=== PATIENT | male | born 1955 | race Caucasian/White ===

== ENCOUNTER 2022-06-09 10:54 | Day surgery (SDC) | payer MEDICARE, MEDICAID ==
[2022-06-09] VITALS (13 sets, daily range): BP systolic 135–175; BP diastolic 65–117
[~2022-06-09] VITALS: Ht 182.9 cm; Wt 96.0 kg
[~2022-06-09 10:54] MED LIST: LISI1TAB53 PO; OMEP40CA21 PO
[2022-06-09] MEDS ORDERED: normal saline 1000ml 1,000 ML IV SCH ×2 (11:15→13:35)
[2022-06-09] MEDS ORDERED: TIOT4MIS2 INH (11:28)
[2022-06-09] MEDS ORDERED: LOSA50TA64 PO (11:28)
[2022-06-09] MEDS ORDERED: ATOR-2 PO (11:28)
[2022-06-09] MEDS ORDERED: DILT360C32 PO (11:28)
[2022-06-09] MEDS ORDERED: MONT-40 PO (11:28)
[2022-06-09] MEDS ORDERED: ALBU18HF2 (11:28)
[2022-06-09] MEDS ORDERED: CYCL5TAB PO (11:28)
[2022-06-09] MEDS ORDERED: ALBU17AE26 (11:28)
[2022-06-09] MEDS ORDERED: HYDR100T27 PO (11:28)
[2022-06-09] MEDS ORDERED: PREG150C46 PO (11:28)
[2022-06-09 11:33] LABS: BASOPHILS # (AUTO) 0.1 X10'3 (0-0.2); BASOPHILS % (AUTO) 0.8 % (0-1); EOSINOPHILS # (AUTO) 0.1 X10'3 (0-0.9); EOSINOPHILS % (AUTO) 0.7 % (0-6); HEMATOCRIT 41.7 % (42.0-52.0); HEMOGLOBIN 14.3 g/dl (14.0-17.9); LYMPHOCYTES # (AUTO) 1.6 X10'3 (1.1-4.8); LYMPHOCYTES % (AUTO) 14.2 % (21-51); MEAN CORPUSCULAR HEMOGLOBIN 31.2 PG (27.0-31.0); MEAN CORPUSCULAR HGB CONC 34.4 g/dL (33.0-36.5); MEAN CORPUSCULAR VOLUME 90.8 FL (78-98); MEAN PLATELET VOLUME 8.2 FL (7.4-10.4); MONOCYTES # (AUTO) 0.8 X10'3 (0-0.9); MONOCYTES % (AUTO) 7.4 % (2-12); NEUTROPHILS # (AUTO) 8.4 X10'3 (1.8-7.7); NEUTROPHILS % (AUTO) 76.9 % (42-75); PLATELET COUNT 280 X10'3 (140-440); RED BLOOD COUNT 4.59 X10'6 (4.70-6.10); RED CELL DISTRIBUTION WIDTH 14.1 % (11.5-14.5); WHITE BLOOD COUNT 10.9 X10'3 (4.5-11.0)
[2022-06-09 11:44] LABS: ALBUMIN 2.8 G/DL (3.4-5.0); ANION GAP 6 (8-16); BLOOD UREA NITROGEN 18 MG/DL (7-18); BUN/CREATININE RATIO 22.2 (10.0-20.0); CALCIUM 8.4 MG/DL (8.5-10.1); CHLORIDE 106 MMOL/L (99-107); CREATININE 0.81 MG/DL (0.60-1.10); GLUCOSE 102 MG/DL (70-104); POTASSIUM 3.9 MMOL/L (3.5-5.1); SODIUM 138 MMOL/L (135-145); TOTAL CARBON DIOXIDE 26.5 MMOL/L (24-32); eGFR > 90 ML/MIN
[2022-06-09] MEDS ORDERED: hydrALAZINE 20mg/ml inj. IV ONE (13:13)
[2022-06-10] MEDS ORDERED: LOSA25TA96 PO (09:30)
== END 2022-06-09 15:20 | disposition home or self-care (01) ==
LOC: SSTAY O 10:54
PROVIDERS: ATTEND Radiology Vascular & Interventional Radiology
DX: N04.5 Nephrotic syndrome with diffuse mesangiocapillary glomerulonephritis (principal); N26.9 Renal sclerosis, unspecified; N26.1 Atrophy of kidney (terminal); I13.0 Hypertensive heart and chronic kidney disease with heart failure and stage 1 through stage 4 chronic kidney disease, or unspecified chronic kidney disease; N18.2 Chronic kidney disease, stage 2 (mild); I50.30 Unspecified diastolic (congestive) heart failure; B18.2 Chronic viral hepatitis C; J43.9 Emphysema, unspecified; E55.9 Vitamin D deficiency, unspecified; D64.9 Anemia, unspecified; E78.00 Pure hypercholesterolemia, unspecified; E66.8 Other obesity; Z68.27 Body mass index [BMI] 27.0-27.9, adult; F17.210 Nicotine dependence, cigarettes, uncomplicated; Z87.01 Personal history of pneumonia (recurrent); Z95.0 Presence of cardiac pacemaker; Z82.49 Family history of ischemic heart disease and other diseases of the circulatory system
CPT/HCPCS: 50200; 77012; 99152; 99153; J0360; J7030; 36415; 80048; 85025; 85610; 88346; 88350; A4615

== ENCOUNTER 2023-11-09 14:00 | Emergency (ER) | payer MEDICARE, MEDICAID ==
[~2023-11-09] VITALS: Ht 182.9 cm; Wt 83.8 kg
[~2023-11-09 14:00] MED LIST changes: +ALBU17AE26; +ALBU18HF2; +ATOR-2 PO; +CYCL5TAB PO; +DILT360C25 PO; +HYDR100T12 PO; -LISI1TAB53 PO; +LOSA-415 PO; +MONT-40 PO; -OMEP40CA21 PO; +PREG150C47 PO; +TIOT4MIS2 INH
[2023-11-09 14:17] LABS: BASOPHILS # (AUTO) 0.1 X10'3 (0-0.2); BASOPHILS % (AUTO) 1.1 % (0-1); EOSINOPHILS # (AUTO) 0.1 X10'3 (0-0.9); HEMATOCRIT 54.5 % (42.0-52.0); LYMPHOCYTES # (AUTO) 2.1 X10'3 (1.1-4.8); LYMPHOCYTES % (AUTO) 19.2 % (21-51); MEAN CORPUSCULAR HEMOGLOBIN 30.8 PG (27.0-31.0); MEAN CORPUSCULAR VOLUME 93.2 FL (78-98); MEAN PLATELET VOLUME 9.7 FL (7.4-10.4); MONOCYTES # (AUTO) 1.2 X10'3 (0-0.9); MONOCYTES % (AUTO) 11.2 % (2-12); NEUTROPHILS # (AUTO) 7.5 X10'3 (1.8-7.7); NEUTROPHILS % (AUTO) 67.5 % (42-75); PLATELET COUNT 256 X10'3 (140-440); RED BLOOD COUNT 5.85 X10'6 (4.70-6.10); RED CELL DISTRIBUTION WIDTH 14.8 % (11.5-14.5)
[2023-11-09 14:32] LABS: ALANINE AMINOTRANSFERASE 25 U/L (12-78); ALBUMIN 3.8 G/DL (3.4-5.0); ALBUMIN/GLOBULIN RATIO 1.4 (1.1-1.5); ALKALINE PHOSPHATASE 110 IU/L (46-116); ANION GAP 7 (8-16); ASPARTATE AMINO TRANSFERASE 14 U/L (10-37); BLOOD UREA NITROGEN 19 MG/DL (7-18); BUN/CREATININE RATIO 25.7 (10.0-20.0); CALCIUM 9.2 MG/DL (8.5-10.1); CHLORIDE 105 MMOL/L (99-107); CREATININE 0.74 MG/DL (0.60-1.10); GLUCOSE 87 MG/DL (70-104); POTASSIUM 4.7 MMOL/L (3.5-5.1); SODIUM 141 MMOL/L (135-145); TOTAL CARBON DIOXIDE 29.4 MMOL/L (24-32); TOTAL PROTEIN 6.5 G/DL (6.4-8.2); eCRCL 106 ML/MIN; eGFR > 90 ML/MIN
[2023-11-09 14:39] LABS: PRO BRAIN NATRIURETIC PEPTIDE 102 PG/ML (0-125)
[2023-11-09 21:38] VITALS: BP 130/92; PULSE 68; RESP 18; TEMP 97.8; O2SAT 99
== END 2023-11-09 21:41 | disposition home or self-care (01) ==
LOC: ER 14:01
DX: R42 Dizziness and giddiness (principal); I48.91 Unspecified atrial fibrillation; I13.0 Hypertensive heart and chronic kidney disease with heart failure and stage 1 through stage 4 chronic kidney disease, or unspecified chronic kidney disease; I50.9 Heart failure, unspecified; N18.9 Chronic kidney disease, unspecified; Z79.899 Other long term (current) drug therapy; J44.9 Chronic obstructive pulmonary disease, unspecified
CPT/HCPCS: 36415; 71045; 80053; 83880; 84484; 85025; 93005; 99285